=== PATIENT | male | born 1990 | race African-American/Black ===

== ENCOUNTER 2020-08-27 14:39 | Emergency (ER) | payer OTHER ==
[~2020-08-27] VITALS: Ht 185.4 cm; Wt 100.0 kg
[2020-08-27] MEDS ORDERED: KETOROLAC 30 MG/1 ML ONE (15:16)
--- NOTE | 2020-08-27 15:20 | NUR ---
XRAY AT BEDSIDE, PROVIDED WITH ICE PACK, MEDICATED PER EMAR FOR CONTINUED PAIN AT 11/26
[2020-08-27] MEDS ORDERED: KETOROLAC 30 MG/1 ML IM ONE (15:30)
[2020-08-27] MEDS ORDERED: LIDOCAINE-MPF 1%, 5ML INFIL ONE (15:30)
[2020-08-27] MEDS ORDERED: LIDOCAINE-MPF 1%, 5ML ONE ×2 (15:31→15:33)
[2020-08-27] MEDS ORDERED: ONDANSETRON ODT 4 MG ONE (15:59)
[2020-08-27] MEDS ORDERED: OXYcodone/APAP 5/325MG TABLET PO ONE (16:00)
[2020-08-27] MEDS ORDERED: ONDANSETRON ODT 4 MG PO ONE (16:00)
[2020-08-27] MEDS ORDERED: OXYcodone/APAP 5/325MG TABLET ONE (16:00)
--- NOTE | 2020-08-27 16:04 | NUR ---
ERP PA/MD UNABLE TO REDUCE DISLOCATED LEFT FINGER. TO CONSULT ORTHO MEDICATED FOR CONTINUED PAIN AT 11/26
[2020-08-27] MEDS ORDERED: ONDANSETRON 2MG/ML, 2ML ONE (16:50)
[2020-08-27] MEDS ORDERED: MORPHINE SULFATE 4 MG/ML, 1ML ONE ×2 (16:51→18:00)
[2020-08-27] MEDS: MORPHINE SULFATE 4 MG/ML, 1ML IVPush PRN ×2 (16:57→18:50)
[2020-08-27] MEDS ORDERED: ONDANSETRON 2MG/ML, 2ML IVPush ONE (17:00)
[2020-08-27] MEDS ORDERED: SODIUM CHLORIDE FLUSH 10ML SYR IVF ONE (17:00)
--- NOTE | 2020-08-27 17:51 | NUR ---
WITH REASSESSMNET PAIN IMPROVED TO 3/10, DISTAL CMS REMAINS INTACT ORTHO CALLED-SHOULD BE BY AROUND 6PM-PATIENT UPDATED
--- NOTE | 2020-08-27 18:56 | NUR ---
DR. RODRIGUEZ (ORTHOPEDIST) AT BEDSIDE. FINGER REDUCED. SPLINTED BY TANGELA GUTIERRES REPORT TO TANGELA GUTIERRES
--- NOTE | 2020-08-27 19:04 | NUR ---
BEDSIDE REPORT FROM MONTEZ GUTIERRES
--- NOTE | 2020-08-27 19:12 | NUR ---
ERP AND ORTHO AT BEDSIDE FOR DISLOCATION REDUCTION. PT TOLERATED WELL. PT PLACED IN DORSAL FINGER SPLINT. AWAITING XRAY
--- NOTE | 2020-08-27 19:49 | NUR ---
SPLINT REAPPLIED PER ERP ORDER. PT TOLERATED WELL. PT PROVIDED CRACKERS AND WATER. PT DENUES ANY ADDITIONAL NEEDS AT THIS TIME. CALL LIGHT IN REACH. SNF STAFF AT BEDSIDE. AWAITING D/C
[2020-08-27] MEDS ORDERED: OXYcodone/APAP 10/325MG TABLET ONE (20:22)
[2020-08-27] MEDS ORDERED: OXYcodone/APAP 10/325MG TABLET PO ONE (20:30)
[2020-08-27 20:41] VITALS: BP 124/80
--- NOTE | 2020-08-27 20:46 | NUR ---
Patient given discharge instructions and they have confirmed that they understand the instructions. Patient ambulatory with steady gait.
== END 2020-08-27 20:59 | disposition home or self-care (01) ==
LOC: ED 19:44
DX: S63.284A Dislocation of proximal interphalangeal joint of right ring finger, initial encounter (principal); X58.XXXA Exposure to other specified factors, initial encounter; Y93.89 Activity, other specified; Y92.89 Other specified places as the place of occurrence of the external cause; Y99.8 Other external cause status
CPT/HCPCS: 26770; 73130; 73140; 96372; 96374; 96375; 96376; 99284; J1885; J2270; J2405; Q0162; 64450